=== PATIENT | male | born 1945 | race Two or more races ===

== ENCOUNTER 2020-09-07 09:10 | Outpatient (CLI) | payer OTHER | END 2020-09-07 09:15 | disposition home or self-care (01) | LOC: SONOGRAMA 09:10 | PROVIDERS: ATTEND Pathology Anatomic Pathology & Clinical Pathology | DX: E04.1 Nontoxic single thyroid nodule (principal) ==

== ENCOUNTER 2020-11-23 07:55 | Outpatient (CLI) | payer OTHER | END 2020-11-23 07:57 | disposition home or self-care (01) | LOC: SONOGRAMA 07:55 | PROVIDERS: ATTEND Pathology Anatomic Pathology & Clinical Pathology | DX: D34 Benign neoplasm of thyroid gland (principal); E04.8 Other specified nontoxic goiter ==